=== PATIENT | male | born 1995 | race Caucasian/White ===

== ENCOUNTER 2017-04-14 08:48 | Emergency (ER) | payer MEDICAID, OTHER ==
--- NOTE | 2017-04-14 09:22 | PD ---
HPI Chief Complaint: Abdominal Pain Time Seen by Provider: 09:12 Travel History International Travel<30 days: No Contact w/Intl Traveler<30days: No Traveled to known affect area: No History of Present Illness HPI This patient complains of abdominal pain. He says that he has daily spells of abdominal pain for the last one year. He saw his physician for months back and had testing done but no cause was found. Mother is not sure what tests were done. He has no vomiting. Pain is present when he wakes up in the morning and last about 15 minutes and resolves. He denies it being related to eating. Location is usually right upper quadrant. Severity is moderate. No alleviating factors. No exacerbating factors. He does occasionally have diarrhea. He is currently pain-free [facility] Past Medical History Developmental Delay: No Diminished Hearing: No Immunizations Current: Yes Tetanus Vaccination: Unknown Influenza Vaccination: No Social History Alcohol Use: No Tobacco Use: Yes (09/24 ppd) Substance Use: No Allergies-Medications (Allergen,Severity, Reaction): Coded Allergies: No Known Allergies (Verified , 04/14/17) Reported Meds & Prescriptions Reported Meds & Active Scripts Active No Active Prescriptions or Reported Medications Review of Systems General / Constitutional: No: Fever Eyes: No: Visual changes HENT: No: Headaches Cardiovascular: No: Chest Pain or Discomfort Respiratory: No: Shortness of Breath Gastrointestinal: Positive: Nausea, Diarrhea, Abdominal Pain Genitourinary: No: Dysuria Musculoskeletal: No: Pain Skin: No Rash Neurologic: No: Weakness Psychiatric: No: Depression Endocrine: No: Polydipsia Hematologic/Lymphatic: No: Easy Bruising Physical Exam Narrative GENERAL: Well-nourished, well-developed patient in no apparent distress. SKIN: Focused skin assessment reveals no rash and nodules. Skin is Warm and dry. HEAD: Atraumatic. Normocephalic. EYES: Pupils equal and round. No scleral icterus. No injection or drainage. ENT: No nasal bleeding or discharge. Mucous membranes pink and moist. NECK: Trachea midline. No JVD. CARDIOVASCULAR: Regular rate and rhythm. No murmur appreciated. RESPIRATORY: No accessory muscle use. Clear to auscultation. Breath sounds equal bilaterally. GASTROINTESTINAL: Abdomen soft, non-tender, nondistended. Hepatic and splenic margins not palpable. MUSCULOSKELETAL: No obvious deformities. No clubbing. No cyanosis. No edema. NEUROLOGICAL: Awake and alert. No obvious cranial nerve deficits. Motor grossly within normal limits. Normal speech. PSYCHIATRIC: Appropriate mood and affect; insight and judgment normal. Data Data Last Documented VS Vital Signs Date Time Temp Pulse Resp B/P (MAP) Pulse Ox O2 Delivery O2 Flow Rate FiO2 04/14/17 09:33 152/80 (104) 04/14/17 09:13 16 Orders Orders Complete Blood Count With Diff (04/14/17 09:20) Comprehensive Metabolic Panel (04/14/17 09:20) Lipase (04/14/17 09:20) Iv Access Insert/Monitor (04/14/17 09:20) Sodium Chloride 0.9% Flush (Ns Flush) (04/14/17 09:30) Labs Laboratory Tests Test 04/14/17 09:30 White Blood Count 6.5 TH/MM3 Red Blood Count 5.88 MIL/MM3 Hemoglobin 15.7 GM/DL Hematocrit 48.3 % Mean Corpuscular Volume 82.1 FL Mean Corpuscular Hemoglobin 26.7 PG Mean Corpuscular Hemoglobin Concent 32.5 % Red Cell Distribution Width 14.0 % Platelet Count 179 TH/MM3 Mean Platelet Volume 10.3 FL Neutrophils (%) (Auto) 71.9 % Lymphocytes (%) (Auto) 17.6 % Monocytes (%) (Auto) 7.5 % Eosinophils (%) (Auto) 2.4 % Basophils (%) (Auto) 0.6 % Neutrophils # (Auto) 4.7 TH/MM3 Lymphocytes # (Auto) 1.1 TH/MM3 Monocytes # (Auto) 0.5 TH/MM3 Eosinophils # (Auto) 0.2 TH/MM3 Basophils # (Auto) 0.0 TH/MM3 CBC Comment DIFF FINAL Differential Comment Blood Urea Nitrogen 23 MG/DL Creatinine 0.93 MG/DL Random Glucose 106 MG/DL Total Protein 7.4 GM/DL Albumin 3.9 GM/DL Calcium Level 9.0 MG/DL Alkaline Phosphatase 75 U/L Aspartate Amino Transf (AST/SGOT) 25 U/L Alanine Aminotransferase (ALT/SGPT) 50 U/L Total Bilirubin 0.5 MG/DL Sodium Level 138 MEQ/L Potassium Level 4.4 MEQ/L Chloride Level 106 MEQ/L Carbon Dioxide Level 26.6 MEQ/L Anion Gap 5 MEQ/L Estimat Glomerular Filtration Rate 105 ML/MIN Lipase 87 U/L MDM Medical Decision Making Medical Screen Exam Complete: Yes Emergency Medical Condition: Yes Medical Record Reviewed: Yes Differential Diagnosis Gastroparesis, irritable bowel syndrome, inflammatory bowel disease Narrative Course I have reviewed the patient's electronic medical record. IV placed CBC is normal metabolic profile is normal LFT's are normal lipase is normal Etiology of his symptoms is unclear. May be irritable bowel syndrome or gastroparesis. Patient should follow-up with GI physician Diagnosis Primary Impression: Chronic generalized abdominal pain Additional Instructions: Follow-up with primary care and GI physician Med/Other Pt SpecificInfo: Other Scripts No Active Prescriptions or Reported Meds Disposition: DISCHARGE HOME Condition: Stable Benjamin Lloyd MD Apr 14, 2017 09:22
[2017-04-14] MEDS ORDERED: SODIUM CHLORIDE 0.9% FLUSH 10 ML FLUSH IV FLUSH PRN (09:30)
[2017-04-14 09:33] VITALS: BP 152/80
[2017-04-14 09:46] LABS: AUTOMATED NEUTROPHIL # 4.7 TH/MM3 (1.8-7.7); BASOPHIL % 0.6 % (0.0-2.0); EOSINOPHIL # 0.2 TH/MM3 (0-0.4); EOSINOPHIL % 2.4 % (0.0-4.0); HEMATOCRIT 48.3 % (39.0-51.0); HEMO FLAGS DIFF FINAL; LYMPH % 17.6 % (9.0-44.0); LYMPHOCYTE # 1.1 TH/MM3 (1.0-4.8); MEAN CELL VOLUME 82.1 FL (80.0-100.0); MEAN CORPUSCULAR HEMOGLOBIN 26.7 PG (27.0-34.0); MEAN CORPUSCULAR HGB CONC 32.5 % (32.0-36.0); MONO % 7.5 % (0.0-8.0); NEUT % 71.9 % (16.0-70.0); PLATELET COUNT 179 TH/MM3 (150-450); RED BLOOD COUNT 5.88 MIL/MM3 (4.50-5.90); WHITE BLOOD COUNT 6.5 TH/MM3 (4.0-11.0)
[2017-04-14 09:58] LABS: CHLORIDE 106 MEQ/L (98-107); POTASSIUM 4.4 MEQ/L (3.5-5.1); SODIUM (NA) 138 MEQ/L (136-145)
[2017-04-14 10:03] LABS: ANION GAP 5 MEQ/L (5-15); BICARBONATE 26.6 MEQ/L (21.0-32.0)
[2017-04-14 10:04] LABS: BLOOD UREA NITROGEN 23 MG/DL (7-18)
[2017-04-14 10:06] LABS: ALT (GPT) 50 U/L (9-52); AST (GOT) 25 U/L (15-39); GLOMERULAR FILTRATION RATE 105 ML/MIN (>89)
[2017-04-14 10:07] LABS: TOTAL BILIRUBIN ADULT 0.5 MG/DL (0.2-1.0)
[2017-04-14 10:09] LABS: ALKALINE PHOSPHATASE 75 U/L (45-117)
[2017-04-14 10:51] VITALS: BP 152/79
== END 2017-04-14 10:53 | disposition home or self-care (01) ==
LOC: PHED 08:48
DX: G89.29 Other chronic pain (principal); R10.84 Generalized abdominal pain
CPT/HCPCS: 80053; 83690; 85025; 99283